=== PATIENT | female | born 1980 | race Two or more races ===

== ENCOUNTER 2016-12-28 19:19 | Emergency (ER) | payer MEDICAID ==
[~2016-12-28] VITALS: Ht 157.5 cm; Wt 62.6 kg
[2016-12-28] MEDS ORDERED: AMOXICILLIN500 MG ORAL (20:00)
[2016-12-28] MEDS ORDERED: IBUPROFEN600 MG ORAL (20:00)
[2016-12-28] MEDS ORDERED: PREDNISONE20 MG ORAL (20:00)
[2016-12-28] MEDS ORDERED: PredniSONE 20mg tab ORAL ONE (20:00)
[2016-12-28 20:38] VITALS: BP 112/67
--- NOTE | 2016-12-28 21:25 | Emergency Room Report ---
History of Present Illness General Chief Complaint: Sore Throat Source: Patient Present Illness HPI The patient is a 36-year-old female presenting for sore throat for the past 2 days. She denies any sick contacts recent travel. Patient describes a 10 out of 10 dull ache to the back of the throat and worse with swallowing. Pain does not radiate. She also admits to a dry cough. She admits to subjective fevers and chills. She denies any other symptoms including nausea, vomiting, headache , dizziness, shortness of breath Allergies: Coded Allergies: No Known Allergies (Unverified , 12/28/16) Patient History Past Medical History: see triage record Pertinent Family History: none Last Menstrual Period: 12/15/16 Now: No Reviewed Nursing Documentation: PMH: Agreed, PSxH: Agreed Nursing Documentation-PMH Past Medical History: No History, Except For Review of Systems All Other Systems: negative except mentioned in HPI Physical Exam Vital Signs Date Time Temp Pulse Resp B/P Pulse Ox O2 Delivery O2 Flow Rate FiO2 12/28/16 19:31 99.0 120 16 112/67 98 Room Air Sp02 EP Interpretation: reviewed, normal General Appearance: no apparent distress, alert, GCS 15, non-toxic Head: normocephalic, atraumatic Eyes: bilateral eye PERRL, bilateral eye normal inspection ENT: normal voice, uvula midline, tonsillar swelling, pharyngeal erythema, tonsillar exudate Neck: full range of motion, supple/symm/no masses Respiratory: chest non-tender, lungs clear, normal breath sounds, no wheezing, speaking full sentences Genitourinary: normal inspection, no CVA tenderness Musculoskeletal: back normal, gait/station normal, normal range of motion, non- tender Neurologic: alert, oriented x3, responsive, motor strength/tone normal, sensory intact, speech normal Psychiatric: judgement/insight normal, memory normal, mood/affect normal, no suicidal/homicidal ideation Skin: normal color, no rash, warm/dry, well hydrated Lymphatic: adenopathy Medical Decision Making PA Attestation Dr. Nicole is my supervising physician. Patient management was discussed with my supervising physician Diagnostic Impression: Primary Impression: Pharyngitis, acute Qualified Codes: J02.9 - Acute pharyngitis, unspecified ER Course The patient is a 36-year-old female presenting for sore throat for the past 2 days Differential diagnosis include but not limited to pharyngitis, sinusitis, AOM, bronchitis, PNA Physical exam: Vitals within normal limits. Afebrile. No apparent distress HEENT exam: There is bilateral tonsillar edema, erythema, and exudate. Uvula midline. Moist mucous membranes. There is bilateral cervical lymphadenopathy. Lungs are clear to auscultation bilaterally Skin is warm and dry. No rash She is given steroids, amoxicillin, and motrin The patient will be discharged home with a prescription for amoxicillin and is given ER precautions. Patient will followup with primary care Last Vital Signs Date Time Temp Pulse Resp B/P Pulse Ox O2 Delivery O2 Flow Rate FiO2 12/28/16 20:38 60 22 128/88 100 Room Air 12/28/16 20:38 99.0 Status: improved Disposition: HOME, SELF-CARE Condition: Improved Scripts Prednisone* (PREDNISONE*) 20 Mg Tablet 40 MG ORAL DAILY, #8 TAB Prov: CHIQUITA RUBIO P.A. 12/28/16 Amoxicillin* (AMOXIL*) 500 Mg Capsule 500 MG ORAL Q12HR, #20 CAP Prov: MOLLYANCHIQUITA P.A. 12/28/16 Ibuprofen* (MOTRIN*) 600 Mg Tablet 600 MG ORAL Q8H Y for For Pain, #30 TAB 0 Refills Prov: CHIQUITA RUBIO P.A. 12/28/16 Patient Instructions: Pharyngitis, Sore Throat Additional Instructions: I discussed my findings with the patient. All questions and concerns have been answered. Treatment and medication compliance have been addressed. I advised the patient that they need to follow up with PMD in 3-5 days. Return to ED if pain remains or worsens, cough worsens or remains, you notice blood in your sputum, you notice wheezing, you experience a fever, or if needed for any reason. Patient verbalized understanding of discharge instructions. CHIQUITA RUBIO Dec 28, 2016 21:25
== END 2016-12-28 20:38 | disposition home or self-care (01) ==
LOC: EDSEX 19:19 → EMR 19:55
DX: J02.9 Acute pharyngitis, unspecified (principal); R05 Cough
CPT/HCPCS: 99284